=== PATIENT | female | born 1995 | race Caucasian/White ===

== ENCOUNTER 2017-05-02 19:20 | Inpatient (IN) | payer OTHER ==
[2017-05-02 21:12] LABS: BASOPHIL 0.3 % (0-2.0); EOSINOPHIL 2.7 % (0-4.5); MCH 27.8 pg (25.7-33.7); MCHC 32.8 g/dl (32.0-36.0); MEAN CELL VOLUME 84.9 fl (80-96); MEAN PLT VOLUME 9.4 fl (7.5-11.1); NEUTROPHILS 71.7 % (42.8-82.8); PLATELET COUNT 249 K/MM3 (134-434); RDW 13.6 % (11.6-15.6); WHITE BLOOD COUNT 11.7 K/mm3 (4.0-10.0)
[2017-05-02] MEDS ORDERED: DINOPROSTONE 10 MG VAGINAL SUPPOSITORY VG ONE (21:35)
[2017-05-02] MEDS ORDERED: BUTORPHANOL TARTRATE 1 MG/ML VIAL IVPUSH PRN (21:36)
--- NOTE | 2017-05-02 21:37 | HP ---
Past Medical History - Primary Care Physician PCP:: Jessica Levi - Admission Chief Complaint: Post dates induction History of Present Illness: 22 yo EDC 04/25/17 EGA 41 weeks admitted for induction of labor no ROM, Bleeding or YUSUF course low risk male infant primigravida normal anatomy scan EFW 48 % Saw MFM during Fam Hx CHD and mental health discorder History Source: Patient - Past Medical History ...: 1 ...Para: 0 ...EDC by Sono: 04/26/17 Psych: Yes: Schizophrenia - Past Surgical History Hx Myomectomy: No Hx Transabdominal Cerclage: No Additional Surgical History: Breast Implants 2013 - Smoking History Smoking history: Former smoker Have you smoked in the past 12 months: No If you are a former smoker, when did you quit?: When - Alcohol/Substance Use Hx Alcohol Use: No History of Substance Use: reports: Marijuana (none during ) - Social History Usual Living Arrangement: Yes: With Spouse History of Recent Travel: No Home Medications - Allergies Allergies/Adverse Reactions: Allergies Allergy/AdvReac Type Severity Reaction Status Date / Time No Known Allergies Allergy Verified 05/03/17 00:54 - Home Medications Home Medications: Ambulatory Orders Pnv95/Ferrous Fumarate/FA [ Vitamin Tablet] 1 each PO DAILY 05/03/17 Review of Systems - Review of Systems Constitutional: reports: No Symptoms Eyes: reports: No Symptoms HENT: reports: No Symptoms Neck: reports: No Symptoms Cardiovascular: reports: No Symptoms Respiratory: reports: No Symptoms Gastrointestinal: reports: No Symptoms Genitourinary: reports: No Symptoms Breasts: reports: No Symptoms Reported Musculoskeletal: reports: No Symptoms Integumentary: reports: No Symptoms Neurological: reports: No Symptoms Endocrine: reports: No Symptoms Hematology/Lymphatic: reports: No Symptoms Psychiatric: reports: No Symptoms Physical Exam - Maternity Constitutional: Yes: Well Nourished, No Distress Neck: Yes: WNL Cardiovascular: Yes: WNL Breast(s): Yes: WNL - Abdominal Exam/OB Fundal Height: 41 Number of Fetuses: Single Presentation: Vertex Contractions: No Heart Rate (range): 140 Heart Rate Location: [place] Category: I Accelerations: Non-Uniform Decelerations: None - Vaginal Exam/OB Vaginal Bleediing: No Speculum Exam: No Dilatation (cm): closed Effacement (%): 50 Amniotic Membrane Status: Intact Presentation: Vertex/Position Station: -1 - Physical Exam Musculoskeletal: Yes: WNL, Muscle Weakness Extremities: Yes: WNL Edema: No Psychiatric: Yes: WNL, Alert, Oriented - Labs Lab Results: CBC, BMP 05/02/17 20:50 Hemorrhage Risk Assessment - Risk Factors Risk Score: 0 Risk Level: Low Risk Problem List - Problems (1) Post-dates Code(s): O48.0 - POST-TERM Assessment/Plan IUP at 41 week Post dates Cat 1 Plan cervidil placed Stadol ordered
[2017-05-02 21:38] LABS: CALCIUM 8.6 mg/dL (8.5-10.1); CREATININE 0.6 mg/dL (0.55-1.02); INR 0.85 (0.82-1.09); PROTHROMBIN TIME (PATIENT) 9.3 SEC (9.98-11.88)
[2017-05-02 21:41] LABS: ACTIVATED PTT 28.7 SECONDS (26.9-34.4)
[2017-05-03 00:03] VITALS: BMI 29.0
--- NOTE | 2017-05-03 03:06 | PN ---
Ante-Partal Exam - Subjective Subjective: Pt with c/o pain and desires pain management Vital Signs: Vital Signs Temperature 98.6 F 05/02/17 22:00 Pulse Rate 62 05/02/17 22:00 Respiratory Rate 20 05/02/17 22:00 Blood Pressure 124/76 05/02/17 22:00 O2 Sat by Pulse Oximetry (%) Bleeding: No Headache: No Visual changes: No Right upper quadrant pain: No - Contractions Contractions: Yes Regularity: Regular Intensity: Moderate Monitor Mode: External - Exam during Labor Heart Rate: 140 Variability: Moderate Category: I Monitor Accelerations: Present Monitor Decelerations: None Exam: Vaginal Dilatation (cm): closed Amniotic Membrane Status: Intact Presentation: Vertex Station: -1 - Intrapartum Hemorrhage Risk Risk Score: 0 Risk Level: Low Risk - Assessment/Plan Assessment/Plan: IUp at 41 weeks post dates induction Cat 1 Cervidil induction Plan Stadol phenergan continue present management with cervidil
[2017-05-03] MEDS: DEXTROSE 5%-LACTATED RINGERS 1,000 ML IV SCH ×3 (03:25→20:00)
[2017-05-03] MEDS ORDERED: BUTORPHANOL TARTRATE 1 MG/ML VIAL IVPUSH ONE (05:30)
[2017-05-03] MEDS ORDERED: TUBERCULIN PPD 5 TU/0.1ML SYRINGE (IN PATIENT USE ONLY) ID ONE (05:30)
[2017-05-03] MEDS ORDERED: PROMETHAZINE HCL 25 MG/1 ML VIAL IVPUSH ONE (05:30)
[2017-05-03] MEDS ORDERED: AMPICILLIN - 100 ML IVPB ONE (06:15)
[2017-05-03] MEDS ORDERED: AMPICILLIN - 100 ML IVPB SCH (10:15)
[2017-05-03] MEDS ORDERED: DINOPROSTONE 10 MG VAGINAL SUPPOSITORY VG ONE (10:15)
--- NOTE | 2017-05-03 10:43 | PN ---
Ante-Partal Exam - Subjective Vital Signs: Vital Signs Temperature 98.1 F 05/03/17 09:00 Pulse Rate 80 05/03/17 09:00 Respiratory Rate 20 05/03/17 09:00 Blood Pressure 121/65 05/03/17 09:00 O2 Sat by Pulse Oximetry (%) Bleeding: No Headache: No Visual changes: No Right upper quadrant pain: No Pain (scale 1-10): 0 - Contractions Contractions: Yes Regularity: Irregular Intensity: Unaware Monitor Mode: External - Exam during Labor Heart Rate: 140 Variability: Moderate Category: I Monitor Decelerations: None Exam: Vaginal Dilatation (cm): 0.5 Effacement (%): long Amniotic Membrane Status: Intact Presentation: Vertex Station: -2 - Assessment/Plan Assessment/Plan: 22 y/o with SIUP at 41 weeks for IOL 2/2 late term - FHTS cat 1 - IOL, s/p cervidil overnight which was removed 2/2 recurrent late decelerations , cervix still unripe. 2nd cervidil placed this a.m. at 10:00. For re evaluation at 10pm for possible pitocin. Discussed other possible induction methods including mechanical dilation with balloon catheter, misoprostol (will determine if is adequate choice due to recurrent variable decelerations with cervidil overnight) and pitocin. Pt aware of other induction methods and r/b/a for these methods. - GBS positive, will start prophylaxis with ROM or active labor - continue current management
--- NOTE | 2017-05-03 21:25 | PN ---
Ante-Partal Exam - Subjective Subjective: Pt feeling occasional cramping/contractions. Vital Signs: Vital Signs Temperature 98.8 F 05/03/17 18:00 Pulse Rate 80 05/03/17 20:00 Respiratory Rate 20 05/03/17 20:00 Blood Pressure 120/78 05/03/17 20:00 O2 Sat by Pulse Oximetry (%) Bleeding: No Headache: No Visual changes: No Right upper quadrant pain: No Pain (scale 1-10): 2 - Contractions Contractions: Yes Regularity: Regular Intensity: Mild/Mod Monitor Mode: External - Exam during Labor Heart Rate: 135 Variability: Moderate Category: I Monitor Accelerations: Present Monitor Decelerations: None Exam: Vaginal Dilatation (cm): 1 Effacement (%): 50 Amniotic Membrane Status: Intact Presentation: Vertex Station: -2 Remarks: cervix soft but posterior - Assessment/Plan Assessment/Plan: 22 y/o P0 with SIUP at 41 weeks here for labor induction for late term - FHTS cat 1 - labor induction - s/p cervidil X 2 - discussed next steps with patient including tsang bulb placement and pitocin. Pt declines tsang bulb at this time desires to try pitocin. Pt aware if pitocin doesn't work, we may try the tsang bulb in the morning - she is aware and agrees. - GBS positive, to start antibiotics with ROM or in active labor - continue current care
[2017-05-03] MEDS: OXYTOCIN 15 UNITS/ LR 250 ML 250 ML IVPB SCH (21:30)
[2017-05-04] MEDS: BUTORPHANOL TARTRATE 1 MG/ML VIAL IVPUSH PRN ×2 (02:28→09:45)
[2017-05-04] MEDS: PROMETHAZINE HCL 25 MG/1 ML VIAL IVPB PRN ×2 (02:28→09:35)
[2017-05-04] MEDS: DEXTROSE 5%-LACTATED RINGERS 1,000 ML IV SCH ×3 (02:40→09:35)
--- NOTE | 2017-05-04 07:32 | PN ---
Ante-Partal Exam - Subjective Subjective: Patient tolerating contractions. Pitocin at 14. Vital Signs: Vital Signs Temperature 98.4 F 05/04/17 06:00 Pulse Rate 84 05/04/17 06:00 Respiratory Rate 20 05/04/17 06:00 Blood Pressure 128/76 05/04/17 06:00 O2 Sat by Pulse Oximetry (%) Bleeding: No Headache: No Visual changes: No Right upper quadrant pain: No Pain (scale 1-10): 2 - Contractions Contractions: Yes Regularity: Regular Intensity: Mod/Strong Monitor Mode: External - Exam during Labor Heart Rate: 145 Variability: Moderate Category: I Monitor Accelerations: Absent Monitor Decelerations: None Exam: Vaginal Dilatation (cm): 50 Amniotic Membrane Status: Intact Presentation: Vertex Station: -2 - Assessment/Plan Assessment/Plan: 22 y/o P0 with SIUP at 41.1 weeks, labor induction due to late term - FHTS cat 1 - labor induction, s/p cervidil X 2, pitocin overnight with no cervical change. Patient agrees to tsang bulb placement - 30cc tsang baloon placed inside internal cervical os, 30cc saline infused. Pt tolerated procedure. - GBS positive, will start ampicillin once tsang balloon falls out or with SROM - continue current management
[2017-05-04] MEDS ORDERED: AMPICILLIN - 2 GM in SODIUM CHLORIDE 100 ML IVPB ONE (09:32)
--- NOTE | 2017-05-04 09:32 | PN ---
Ante-Partal Exam - Subjective Subjective: Tension placed on tsang balloon and balloon came out of vagina. Pt tolerating contractions but would like more pain medication. No other complaints. NO LOF. +FM. scant VB. Vital Signs: Vital Signs Temperature 98.8 F 05/04/17 08:00 Pulse Rate 55 L 05/04/17 08:00 Respiratory Rate 20 05/04/17 08:00 Blood Pressure 123/70 05/04/17 08:00 O2 Sat by Pulse Oximetry (%) Bleeding: Yes (scant bleeding after tsang balloon was displaced) Headache: No Visual changes: No Right upper quadrant pain: No Pain (scale 1-10): 7 - Contractions Contractions: Yes Regularity: Regular Intensity: Mod/Strong Monitor Mode: External - Exam during Labor Heart Rate: 145 Variability: Moderate Category: I Monitor Accelerations: Present Monitor Decelerations: None Exam: Vaginal Dilatation (cm): 3.5 Effacement (%): 50 Amniotic Membrane Status: Intact Presentation: Vertex Station: -1 Remarks: posterior cervix - Assessment/Plan Assessment/Plan: 22 y/o P0 with SIUP at 41.1 weeks, labor induction - AFVSS - FHTS cat 1 - labor induction, s/p cervidil X 2, on pitocin and s/p tsang balloon which came out at this time. Pt now 3-4cm dilated. To medicate again with Stadol/ phenergan for pain control. To get epidural prn - GBS positive - to start ampicillin at this time - continue active management
[2017-05-04] MEDS: OXYTOCIN 15 UNITS/ LR 250 ML 250 ML IVPB SCH ×4 (09:35→16:04)
[2017-05-04 10:40] LABS: URINE MARIJUANA THC NEGATIVE ng/ml (CUTOFF=50)
[2017-05-04] MEDS: ELECTROLYTE-148 SOLN 1,000 ML IV SCH ×4 (13:00→22:18)
[2017-05-04] MEDS: AMPICILLIN - 1 GM in SODIUM CHLORIDE 100 ML IVPB SCH ×3 (13:31→22:19)
[2017-05-04] MEDS: FENTANYL/BUPIVACAINE/NS/PF - PCEA - 50 ML DISP.SYRIN EP SCH ×2 (13:45→18:42)
[2017-05-04] MEDS: CLOTRIMAZOLE/BETAMET DIPROP 15 GM TUBE TP SCH (15:15)
--- NOTE | 2017-05-04 18:14 | PN ---
Ante-Partal Exam - Subjective Subjective: Patient comfortable s/p epidural. Vital Signs: Vital Signs Temperature 98.6 F 05/04/17 14:15 Pulse Rate 72 05/04/17 17:15 Respiratory Rate 20 05/04/17 17:15 Blood Pressure 119/68 05/04/17 17:15 O2 Sat by Pulse Oximetry (%) 100 05/04/17 17:15 Bleeding: Yes Bleeding Description: Mild Headache: No Visual changes: No Right upper quadrant pain: No Pain (scale 1-10): 0 - Contractions Contractions: Yes Regularity: Regular Intensity: Mod/Strong Monitor Mode: External - Exam during Labor Heart Rate: 145 Variability: Moderate Category: I Monitor Accelerations: Present Monitor Decelerations: None Exam: Vaginal Dilatation (cm): 5.5 Effacement (%): 100 Amniotic Membrane Status: Ruptured (clear fluid - AROM) Nitrazine Test: Positive Amniotic Fluid: Clear Presentation: Vertex Station: -1 - Assessment/Plan Assessment/Plan: 22 y/o with SIUP at 41.1 weeks, labor induction for late term - FHTS cat 1 - IOL for late term - pt on pitocin at 17, AROM for clear fluid at this exam. Continue expectant management - GBS positive, continue ampicillin for prophylaxis - anticipate
[2017-05-04] MEDS ORDERED: ACETAMINOPHEN 1000 MG/100 ML VIAL (NON FORMULARY) IVPB ONE (21:09)
[2017-05-05] MEDS: OXYTOCIN 15 UNITS/ LR 250 ML 250 ML IVPB SCH (01:29)
[2017-05-05] MEDS: AMPICILLIN - 1 GM in SODIUM CHLORIDE 100 ML IVPB SCH ×2 (02:12→05:54)
[2017-05-05] MEDS: CLOTRIMAZOLE/BETAMET DIPROP 15 GM TUBE TP SCH ×3 (04:15→21:30)
--- NOTE | 2017-05-05 08:53 | PN ---
Ante-Partal Exam - Subjective Subjective: Patient feeling some tightening, no pain with contractions. Overnight patient was febrile to 100.7 at 9pm. Received one dose of IV Acetaminophen and was afebrile since. Pt had oliguria so pitocin was discontinued at 2 am. Patient remained 6cm at 2am at her last examination per nursing overnight. This a.m. patient is requesting delivery. Vital Signs: Vital Signs Temperature 99.5 F 05/05/17 08:00 Pulse Rate 71 05/05/17 06:45 Respiratory Rate 16 05/05/17 06:45 Blood Pressure 102/49 05/05/17 06:45 O2 Sat by Pulse Oximetry (%) 99 05/04/17 23:45 Bleeding: No Headache: No Visual changes: No Right upper quadrant pain: No Pain (scale 1-10): 2 - Contractions Contractions: Yes Regularity: Irregular Intensity: Mild Monitor Mode: External - Exam during Labor Heart Rate: 150 Variability: Moderate Category: I Monitor Decelerations: None Exam: Vaginal (last examination was 5-6cm at -2 station per nursing, pt declines further vaginal exams) Amniotic Membrane Status: Ruptured Amniotic Fluid: Clear Presentation: Vertex - Intrapartum Hemorrhage Risk Medium Risk Factors: Prolonged Oxytocin Use >24hrs Risk Score: 1 Risk Level: Medium Risk - Assessment/Plan Assessment/Plan: 22 y/o P0 with SIUP at 41.2 weeks, was labor induction due to late term, now with arrest of dilation - AFVSS - Tmax overnight 100.7, resolved with one dose of IV acetaminophen, abdomen nontender, do not expect acute chorioamionitis at this time, will monitor mother post for signs of endometritis - FHTS cat 1 - IOL with arrest of dilation at 6cm - pt for delivery. Consents signed. Patient, nursing, and anesthesia aware - NPO, Lara catheter, SCDs in place - oliguria - will monitor s/p delivery. If still present after section , will check kidney function
[2017-05-05] MEDS ORDERED: METHYLERGONOVINE MALEATE 0.2 MG/1 ML AMP IM PRN (09:06)
[2017-05-05] MEDS ORDERED: BENZOCAINE 28 GM HEMORRHOIDAL OINTMENT TP PRN (09:06)
[2017-05-05] MEDS ORDERED: WITCH HAZEL 50% (TUCKS) 40 PAD/JAR PAD TP PRN (09:06)
[2017-05-05] MEDS ORDERED: ONDANSETRON 4 MG/2 ML VIAL IVPB PRN (10:21)
[2017-05-05] MEDS ORDERED: ACETAMINOPHEN 1000 MG/100 ML VIAL (NON FORMULARY) IVPB PRN (10:23)
[2017-05-05] MEDS: OXYTOCIN 20 UNITS in 0.9% NS 1,000 ML IV SCH ×2 (12:39→21:31)
[2017-05-05] MEDS: IBUPROFEN 800 MG/8 ML IJ IVPB PRN ×2 (12:39→23:32)
[2017-05-05] MEDS: PRENATAL VITAMINS W/ FOLIC ACID TABLET (FP) PO SCH (14:04)
[2017-05-05] MEDS: FERROUS SO4 325 MG TABLET (FP) PO SCH ×2 (14:04→21:30)
[2017-05-05] MEDS ORDERED: CEFAZOLIN (PRE-DOCKED) 50 ML IVPB ONE ×2 (14:25→21:09)
[2017-05-05] MEDS: CEFAZOLIN 1 GM/D5W 50 ML IVPB SCH ×2 (14:33→21:27)
[2017-05-06] MEDS ORDERED: CEFAZOLIN (PRE-DOCKED) 50 ML IVPB ONE ×3 (05:24→21:26)
[2017-05-06] MEDS: CEFAZOLIN 1 GM/D5W 50 ML IVPB SCH (05:33)
[2017-05-06] MEDS: IBUPROFEN 800 MG/8 ML IJ IVPB PRN (05:50)
--- NOTE | 2017-05-06 06:33 | PN ---
Progress Note (SOAP) - Subjective Chief Complaint: Pt doing well but severe labia swelling - Current Medications Current Medications: Active Medications Acetaminophen (Tylenol -) 650 mg PO Q4H PRN PRN Reason: FEVER OR PAIN Benzocaine (Americaine Ointment -) 1 applic TP PRN PRN PRN Reason: PAIN Bisacodyl (Dulcolax Suppository -) 10 mg RC PRN PRN PRN Reason: CONSTIPATION Butorphanol Tartrate (Stadol -) 2 mg IVPUSH Q4H PRN PRN Reason: PAIN LEVEL 6-10 Last Admin: 05/04/17 09:45 Dose: 2 mg Clotrimazole (Lotrisone Cream (Small Tube)) 1 applic TP BID [facility] Last Admin: 05/05/17 21:30 Dose: 1 applic Diphenhydramine HCl (Benadryl Injection -) 25 mg IVPUSH Q4H PRN PRN Reason: Pruritis Last Admin: 05/05/17 23:32 Dose: 25 mg Diphtheria/Tetanus/Acell Pertussis (Boostrix -) 0.5 ml IM .ONCE ONE Stop: 05/06/17 10:01 Ferrous Sulfate (Feosol -) 325 mg PO BID [facility] Last Admin: 05/05/17 21:30 Dose: Not Given Cefazolin Sodium (Ancef 1 Gm Premixed Ivpb -) 50 mls @ 100 mls/hr IVPB Q8H [facility] Stop: 05/06/17 13:59 Last Admin: 05/06/17 05:33 Dose: 100 mls/hr Oxytocin/Sodium Chloride (Normal Saline+20 Units Oxytocin -) 1,000 mls @ 125 mls/hr IV ASDIR [facility] Last Admin: 05/05/17 21:31 Dose: 125 mls/hr Ibuprofen (Motrin -) 600 mg PO Q4H PRN PRN Reason: PAIN Ibuprofen (Caldolor Injection -) 800 mg IVPB Q8H PRN PRN Reason: PAIN OR FEVER Last Admin: 05/06/17 05:50 Dose: 800 mg Methylergonovine Maleate (Methergine Injection -) 0.2 mg IM Q4H PRN PRN Reason: Excessive Bleeding (L&D) Oxycodone HCl (Roxicodone -) 5 mg PO Q4H PRN PRN Reason: PAIN LEVEL 1-5 Oxycodone HCl (Roxicodone -) 10 mg PO Q4H PRN PRN Reason: PAIN LEVEL 6-10 Multivit/Folic Acid/Iron ( Vitamins (Sjr) -) 1 tab PO DAILY [facility] Last Admin: 05/05/17 14:04 Dose: Not Given Simethicone (Mylicon -) 80 mg PO Q4H PRN PRN Reason: GAS Witch Tayler/Glycerin (Tucks Pads -) 1 pad TP PRN PRN PRN Reason: PAIN - Objective Vital Signs: Vital Signs Temperature 97.7 F 05/06/17 05:37 Pulse Rate 64 05/06/17 05:37 Respiratory Rate 18 05/06/17 06:00 Blood Pressure 110/69 05/06/17 05:37 O2 Sat by Pulse Oximetry (%) 100 05/05/17 11:15 Constitutional: Yes: Well Nourished, No Distress ....Post : Yes: Uterus firm, Uterus non-tender Musculoskeletal: Yes: WNL Extremities: Yes: WNL Peripheral Pulses WNL: No Edema: Yes Edema: LLE: Trace, RLE: Trace (severe labia swelling) Wound/Incision: Yes: Clean/Dry, Dressing Dry and Intact Neurological: Yes: WNL, Alert, Oriented Labs Lab Results: CBC, BMP 05/02/17 20:50 05/02/17 20:50 Problem List - Problems (1) Post-dates Code(s): O48.0 - POST-TERM Assessment/Plan SP Primary CS POD 1 Severe Labia swelling Elevated WBC Plan OOB Percocet ice packs to vulvar area Continue abs
[2017-05-06 08:02] LABS: MCH 27.6 pg (25.7-33.7); MCHC 32.1 g/dl (32.0-36.0); MEAN CELL VOLUME 85.8 fl (80-96); PLATELET COUNT 162 K/MM3 (134-434); RDW 13.8 % (11.6-15.6); WHITE BLOOD COUNT 21.2 K/mm3 (4.0-10.0)
--- NOTE | 2017-05-06 08:18 | PN ---
Progress Note (short form) - Note Progress Note: Anesthesia/pain Pt seen and examined S:alert and awake comfortable O: Vital Signs Temperature 97.7 F 05/06/17 05:37 Pulse Rate 64 05/06/17 05:37 Respiratory Rate 18 05/06/17 06:00 Blood Pressure 110/69 05/06/17 05:37 O2 Sat by Pulse Oximetry (%) 100 05/05/17 11:15 CBC, BMP 05/06/17 07:00 05/02/17 20:50 A/P:Current Active Problems Post-dates (Acute) s/p c section Comfortable Doing well post op Nate Lynne MD
[2017-05-06 08:53] LABS: HYPOCHROMIA 1+; PLATELET ESTIMATE ADEQUATE (NORMAL); POLYCHROMASIA 1+
[2017-05-06] MEDS ORDERED: BISACODYL 10 MG SUPP.RECT RC PRN (09:06)
[2017-05-06] MEDS: FERROUS SO4 325 MG TABLET (FP) PO SCH ×3 (09:25→23:34)
[2017-05-06] MEDS: CLOTRIMAZOLE/BETAMET DIPROP 15 GM TUBE TP SCH ×2 (09:25→21:42)
[2017-05-06] MEDS: PRENATAL VITAMINS W/ FOLIC ACID TABLET (FP) PO SCH (09:26)
[2017-05-06] MEDS ORDERED: CEFAZOLIN (PRE-DOCKED) 1 GM in DEXTROSE 5%-WATER - 50 ML IVPB SCH (10:00)
[2017-05-06] MEDS ORDERED: DIPHTH,PERTUSS(ACELL),TET 0.5 ML DISP.SYRIN IM ONE (10:00)
[2017-05-06] MEDS: SIMETHICONE 80 MG TAB.CHEW (FP) PO PRN ×3 (11:24→21:42)
[2017-05-06] MEDS: IBUPROFEN 600 MG TABLET (FP) PO PRN ×3 (11:24→21:39)
[2017-05-06] MEDS: oxyCODONE HCL 5 MG TABLET PO PRN ×3 (11:25→21:38)
[2017-05-06] MEDS: CEFAZOLIN (PRE-DOCKED) 1 GM in DEXTROSE 5%-WATER - 50 ML IVPB SCH ×2 (13:18→21:32)
[2017-05-06] MEDS ORDERED: diphenhydrAMINE HCL 25 MG CAPSULE (FP) PO PRN (22:15)
[2017-05-07] MEDS: SIMETHICONE 80 MG TAB.CHEW (FP) PO PRN ×3 (03:12→22:07)
[2017-05-07] MEDS: oxyCODONE HCL 5 MG TABLET PO PRN ×3 (03:14→22:06)
[2017-05-07] MEDS: IBUPROFEN 600 MG TABLET (FP) PO PRN ×2 (03:15→14:20)
[2017-05-07] MEDS ORDERED: CEFAZOLIN (PRE-DOCKED) 50 ML IVPB ONE (05:38)
[2017-05-07] MEDS: CEFAZOLIN (PRE-DOCKED) 1 GM in DEXTROSE 5%-WATER - 50 ML IVPB SCH (05:43)
[2017-05-07] MEDS: PRENATAL VITAMINS W/ FOLIC ACID TABLET (FP) PO SCH (09:47)
[2017-05-07] MEDS: FERROUS SO4 325 MG TABLET (FP) PO SCH ×2 (09:47→22:07)
[2017-05-07] MEDS: CLOTRIMAZOLE/BETAMET DIPROP 15 GM TUBE TP SCH ×2 (09:48→22:44)
[2017-05-07 12:07] LABS: BASOPHIL 0.2 % (0-2.0); EOSINOPHIL 0.6 % (0-4.5); MCH 27.7 pg (25.7-33.7); MCHC 32.5 g/dl (32.0-36.0); NEUTROPHILS 86.7 % (42.8-82.8); PLATELET COUNT 191 K/MM3 (134-434); WHITE BLOOD COUNT 16.8 K/mm3 (4.0-10.0)
[2017-05-07] MEDS: CEFAZOLIN (PRE-DOCKED) 50 ML IVPB SCH ×2 (14:25→22:07)
--- NOTE | 2017-05-07 21:25 | PN ---
Progress Note (SOAP) - Subjective Chief Complaint: Pt with swollen labia - Current Medications Current Medications: Active Medications Acetaminophen (Tylenol -) 650 mg PO Q4H PRN PRN Reason: FEVER OR PAIN Benzocaine (Americaine Ointment -) 1 applic TP PRN PRN PRN Reason: PAIN Bisacodyl (Dulcolax Suppository -) 10 mg RC PRN PRN PRN Reason: CONSTIPATION Clotrimazole (Lotrisone Cream (Small Tube)) 1 applic TP BID [facility] Last Admin: 05/07/17 09:48 Dose: 1 applic Diphenhydramine HCl (Benadryl Injection -) 25 mg IVPUSH Q4H PRN PRN Reason: Pruritis Last Admin: 05/05/17 23:32 Dose: 25 mg Diphenhydramine HCl (Benadryl -) 25 mg PO Q6H PRN Last Admin: 05/06/17 23:32 Dose: 25 mg Ferrous Sulfate (Feosol -) 325 mg PO BID [facility] Last Admin: 05/07/17 09:47 Dose: 325 mg Cefazolin Sodium (Ancef 1gm Ivpb (Pre-Docked)) 50 mls @ 100 mls/hr IVPB Q8H [facility] Last Admin: 05/07/17 14:25 Dose: 100 mls/hr Ibuprofen (Motrin -) 600 mg PO Q4H PRN PRN Reason: PAIN Last Admin: 05/07/17 14:20 Dose: 600 mg Ibuprofen (Caldolor Injection -) 800 mg IVPB Q8H PRN PRN Reason: PAIN OR FEVER Last Admin: 05/06/17 05:50 Dose: 800 mg Methylergonovine Maleate (Methergine Injection -) 0.2 mg IM Q4H PRN PRN Reason: Excessive Bleeding (L&D) Oxycodone HCl (Roxicodone -) 5 mg PO Q4H PRN PRN Reason: PAIN LEVEL 1-5 Last Admin: 05/07/17 14:18 Dose: 5 mg Oxycodone HCl (Roxicodone -) 10 mg PO Q4H PRN PRN Reason: PAIN LEVEL 6-10 Multivit/Folic Acid/Iron ( Vitamins (Sjr) -) 1 tab PO DAILY [facility] Last Admin: 05/07/17 09:47 Dose: 1 tab Simethicone (Mylicon -) 80 mg PO Q4H PRN PRN Reason: GAS Last Admin: 05/07/17 14:18 Dose: 80 mg Witch Tayler/Glycerin (Tucks Pads -) 1 pad TP PRN PRN PRN Reason: PAIN - Objective Vital Signs: Vital Signs Temperature 98.4 F 05/07/17 08:36 Pulse Rate 71 05/07/17 08:36 Respiratory Rate 20 05/07/17 08:36 Blood Pressure 131/84 05/07/17 08:36 O2 Sat by Pulse Oximetry (%) 100 05/05/17 11:15 Constitutional: Yes: Well Nourished, No Distress Labs Lab Results: CBC, BMP 05/07/17 11:59 05/02/17 20:50 Problem List - Problems (1) delivery delivered Code(s): O82 - ENCOUNTER FOR DELIVERY WITHOUT INDICATION (2) Swelling of vulva Code(s): N90.89 - OTH NONINFLAMMATORY DISORDERS OF VULVA AND PERINEUM Assessment/Plan SP Primary CS POD 2 Severe Labia swelling Elevated WBC 16 Plan OOB Percocet ice packs to vulvar area Continue abs
[2017-05-07] MEDS: ACETAMINOPHEN 325 MG TABLET (FP) PO PRN (22:05)
[2017-05-08] MEDS: SIMETHICONE 80 MG TAB.CHEW (FP) PO PRN ×5 (02:02→21:00)
[2017-05-08] MEDS: ACETAMINOPHEN 325 MG TABLET (FP) PO PRN ×5 (02:02→20:58)
[2017-05-08] MEDS: oxyCODONE HCL 5 MG TABLET PO PRN ×5 (02:03→20:55)
[2017-05-08] MEDS: CEFAZOLIN (PRE-DOCKED) 50 ML IVPB SCH (05:42)
--- NOTE | 2017-05-08 05:51 | PN ---
Progress Note (SOAP) - Subjective Chief Complaint: Pt with swollen labia - Current Medications Current Medications: Active Medications Acetaminophen (Tylenol -) 650 mg PO Q4H PRN PRN Reason: FEVER OR PAIN Last Admin: 05/08/17 05:43 Dose: 650 mg Benzocaine (Americaine Ointment -) 1 applic TP PRN PRN PRN Reason: PAIN Bisacodyl (Dulcolax Suppository -) 10 mg RC PRN PRN PRN Reason: CONSTIPATION Clotrimazole (Lotrisone Cream (Small Tube)) 1 applic TP BID [facility] Last Admin: 05/07/17 22:44 Dose: 1 applic Diphenhydramine HCl (Benadryl Injection -) 25 mg IVPUSH Q4H PRN PRN Reason: Pruritis Last Admin: 05/05/17 23:32 Dose: 25 mg Diphenhydramine HCl (Benadryl -) 25 mg PO Q6H PRN Last Admin: 05/06/17 23:32 Dose: 25 mg Ferrous Sulfate (Feosol -) 325 mg PO BID [facility] Last Admin: 05/07/17 22:07 Dose: 325 mg Cefazolin Sodium (Ancef 1gm Ivpb (Pre-Docked)) 50 mls @ 100 mls/hr IVPB Q8H [facility] Last Admin: 05/08/17 05:42 Dose: 100 mls/hr Ibuprofen (Motrin -) 600 mg PO Q4H PRN PRN Reason: PAIN Last Admin: 05/07/17 14:20 Dose: 600 mg Ibuprofen (Caldolor Injection -) 800 mg IVPB Q8H PRN PRN Reason: PAIN OR FEVER Last Admin: 05/06/17 05:50 Dose: 800 mg Methylergonovine Maleate (Methergine Injection -) 0.2 mg IM Q4H PRN PRN Reason: Excessive Bleeding (L&D) Oxycodone HCl (Roxicodone -) 5 mg PO Q4H PRN PRN Reason: PAIN LEVEL 1-5 Last Admin: 05/08/17 05:42 Dose: 5 mg Oxycodone HCl (Roxicodone -) 10 mg PO Q4H PRN PRN Reason: PAIN LEVEL 6-10 Multivit/Folic Acid/Iron ( Vitamins (Sjr) -) 1 tab PO DAILY [facility] Last Admin: 05/07/17 09:47 Dose: 1 tab Simethicone (Mylicon -) 80 mg PO Q4H PRN PRN Reason: GAS Last Admin: 05/08/17 05:42 Dose: 80 mg Witch [place]ler/Glycerin (Tucks Pads -) 1 pad TP PRN PRN PRN Reason: PAIN - Objective Vital Signs: Vital Signs Temperature 98.9 F 05/07/17 22:00 Pulse Rate 84 05/07/17 22:00 Respiratory Rate 20 05/07/17 22:00 Blood Pressure 137/75 05/07/17 22:00 O2 Sat by Pulse Oximetry (%) 100 05/05/17 11:15 Constitutional: Yes: Well Nourished, No Distress Neck: Yes: WNL Cardiovascular: Yes: WNL Respiratory: Yes: WNL Gastrointestinal: Yes: WNL, Normal Bowel Sounds Genitourinary: Yes: Other (swollen labia) ....Post : Yes: Uterus firm, Uterus non-tender Musculoskeletal: Yes: WNL Extremities: Yes: WNL Edema: No Edema: LLE: 1+, RLE: 1+ Wound/Incision: Yes: Clean/Dry, Well Approximated Neurological: Yes: WNL, Alert, Oriented Labs Lab Results: CBC, BMP 05/07/17 11:59 05/02/17 20:50 Problem List - Problems (1) delivery delivered Code(s): O82 - ENCOUNTER FOR DELIVERY WITHOUT INDICATION (2) Swelling of vulva Code(s): N90.89 - OTH NONINFLAMMATORY DISORDERS OF VULVA AND PERINEUM Assessment/Plan SP Primary CS POD 2 Severe Labia swelling Elevated WBC 16 Plan OOB Percocet ice packs to vulvar area Continue abs
--- NOTE | 2017-05-08 07:36 | OP ---
Operative Note - Note: Operative Date: 05/05/17 Pre-Operative Diagnosis: SIUP at 41.2 weeks, arrest of dilation Operation: Primary LTCS Findings: very edematous labia normal bilateral fallopian tubes and ovaries Post-Operative Diagnosis: Same as Pre-op Surgeon: Jessica Levi Executive Asst: Oswald Galindo Anesthesiologist/TANNERY WORKER: Iqra Jung Anesthesia: Epidural Specimens Removed: placenta Estimated Blood Loss (mls): 600 Operative Report Dictated: Yes
[2017-05-08 08:10] LABS: BASOPHIL 0.2 % (0-2.0); EOSINOPHIL 1.8 % (0-4.5); MCHC 33.3 g/dl (32.0-36.0); MEAN CELL VOLUME 84.2 fl (80-96); MEAN PLT VOLUME 8.5 fl (7.5-11.1); PLATELET COUNT 207 K/MM3 (134-434); RDW 13.8 % (11.6-15.6); WHITE BLOOD COUNT 13.8 K/mm3 (4.0-10.0)
[2017-05-08] MEDS: CLOTRIMAZOLE/BETAMET DIPROP 15 GM TUBE TP SCH ×2 (10:00→23:00)
[2017-05-08] MEDS: PRENATAL VITAMINS W/ FOLIC ACID TABLET (FP) PO SCH (10:06)
[2017-05-08] MEDS: FERROUS SO4 325 MG TABLET (FP) PO SCH ×2 (10:06→22:48)
[2017-05-09] MEDS: SIMETHICONE 80 MG TAB.CHEW (FP) PO PRN ×3 (01:21→11:05)
[2017-05-09] MEDS: oxyCODONE HCL 5 MG TABLET PO PRN ×3 (01:22→11:07)
[2017-05-09] MEDS: ACETAMINOPHEN 325 MG TABLET (FP) PO PRN ×3 (01:22→11:05)
[2017-05-09 09:10] VITALS: BP 137/86; PULSE 83; TEMP 98.7
--- NOTE | 2017-05-09 10:58 | DS ---
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 Vital Signs: Vital Signs Temperature 98.7 F 05/09/17 09:06 Pulse Rate 83 05/09/17 09:06 Respiratory Rate 18 05/09/17 09:06 Blood Pressure 137/86 05/09/17 09:06 O2 Sat by Pulse Oximetry (%) 100 05/05/17 11:15 Labs: CBC, BMP 05/08/17 06:00 05/02/17 20:50 Delivery - Delivery Type of Anesthesia: Epidural Episiotomy/Laceration: None EBL (cc): 300 Delivery, Single - Stages of Labor Date 1st Stage Initiatied: 05/04/17 Time 1st Stage Initiated: 09:30 Date of Delivery: 05/05/17 Time of Delivery: : Time Placenta Delivered: : - Condition of Infant Doper Operator/Grain Processor Present: Yes Name: Braeden Urias Infant Gender: Male Weight: 7 lb 14 oz Position: OA Total Hours ROM (Hrs/Mins): 15 - 1 Minute Total Score: 9 5 Minutes Total Score: 9 - [place] Feeding Plan Initial Plan: Elected not to breastfeed exclusively throughout hospitalization Discharge Summary Reason For Visit: INDUCTION OF LABOR Current Active Problems delivery delivered (Acute) Post-dates (Acute) Swelling of vulva (Acute) Condition: Good - Instructions Diet, Activity, Other Instructions: Physical activity Resume your normal everyday activity as tolerated but no heavy lifting or strenuous exercise until seen by your surgeon. You may walk unlimited amounts and climb stairs. You may resume driving the car when you feel safe and comfortable behind the wheel. No sexual activity as instructed. Wound care If there are tapes on the skin leave them in place. They will peel off in the next 7 to 10 days. Do Not Peel them off. You may shower the day after surgery. If there are tapes present on the skin, you may shower over them. Diet There are no dietary restrictions. Eat healthy, high-fiber foods. Drink 6 to 8 glasses of liquid each day. This will assist in keeping your bowels regular. Pain management You may take Tylenol or Ibuprofen (for example, Motrin, Advil etc.) from mild pain. If any prescription medication is ordered should be taken as prescribed for moderate to severe pain. Call MD for any of the following: Severe pain not relieved by medication Fever of 101 or higher Excessive bleeding or drainage on dressing Inability to urinate Call the office to make an appointment for 7 days to check your incision. Referrals: Jessica Levi DO [Staff Physician] - 1 Week Disposition: HOME - Home Medications Comprehensive Discharge Medication List: Ambulatory Orders Pnv95/Ferrous Fumarate/FA [ Vitamin Tablet] 1 each PO DAILY 05/03/17 Ibuprofen [Motrin -] 600 mg PO QID PRN #28 tablet 05/09/17 Oxycodone HCl/Acetaminophen [Percocet 5-325 mg Tablet -] 1 tab PO Q4H #20 tablet MDD 6 05/09/17
[2017-05-09] MEDS: PRENATAL VITAMINS W/ FOLIC ACID TABLET (FP) PO SCH (11:05)
[2017-05-09] MEDS: FERROUS SO4 325 MG TABLET (FP) PO SCH (11:08)
[2017-05-09] MEDS: CLOTRIMAZOLE/BETAMET DIPROP 15 GM TUBE TP SCH (11:09)
--- NOTE | 2017-05-09 11:43 | OP ---
DATE OF OPERATION: 05/05/2017 PREOPERATIVE DIAGNOSES: 1. Arrest of dilation. 2. Single intrauterine at 41.2 weeks gestation. 3. Failed induction of labor. 4. Group B Strep positive status. POSTOPERATIVE DIAGNOSES: 1. Arrest of dilation. 2. Single intrauterine at 41.2 weeks gestation. 3. Failed induction of labor. 4. Group B Strep positive status. PROCEDURE: Primary low-transverse section. SURGEON: Jessica Levi DO REGIONAL DRIVER: CARLENE Dee ANESTHESIA: Epidural anesthesia. ANESTHESIOLOGIST: Iqra Jung MD ESTIMATED BLOOD LOSS: 600 mL. COMPLICATIONS: None. SPECIMENS: Specimens removed included the placenta. COUNTS: Sponge, needle, and instrument counts correct at the end of the case. FINDINGS: Very edematous labia minora. Normal bilateral fallopian tubes and ovaries. DISPOSITION: Stable to PACU. BRIEF HISTORY AND PROCEDURE: The patient is a 22-year-old female who was admitted to [facility] on May 02, 2017, for an induction of labor secondary to late term. The patient had received 2 Cervidil for induction as well as an endocervical Lara bulb and Pitocin throughout the day of May 02, 2017, to May 05, 2017. On May 05, 2017, in the morning the patient's cervix was found to be approximately 6-cm dilated, which was unchanged from over 12 hours prior on the evening of May 04, 2017. The patient at this point was complete on her cervical status and agreed to undergo a primary section at this time. The patient received an epidural for pain control throughout the induction process, which was used for anesthesia. The patient was taken back to the operating room where her epidural was bolused by Dr. Iqra Jung. She was then placed on the operating room table in dorsal supine position. A Lara catheter had been placed earlier under sterile conditions. The patient was prepped and draped in the usual sterile fashion and then a hard time-out was performed. A Pfannenstiel skin incision was created in the skin with the scalpel and carried to the underlying layer of rectus fascia with the Bovie. The rectus fascia was incised on either side of the midline with Bovie and the fascial incision was carried in the superolateral direction with the Bovie. The fascia was tented upwards with Saman clamps and dissected off the underlying layer of rectus muscle with the Bovie. The rectus muscle was retracted laterally and the peritoneum was entered bluntly. The bladder at this point appeared to be very full and minimal drainage secondary to obstruction from the head was noted. The bladder was protected with the bladder blade at this time and a transverse incision was created in the lower uterine segment of the uterus with the scalpel. This incision was carried in the superolateral direction bluntly. The was then delivered from the left occipital transverse position without difficulty. A loose nuchal cord was appreciated, which was reduced after delivered head. The remainder of the including the anterior shoulder, which was the right shoulder, was delivered with ease. The cord was then clamped twice and cut in between. The infant was taken over to the warmer to be assessed by the neonatology staff that was present for the entire delivery. The scores were 9 and 9. Attention was then turned to the placenta, which was delivered manually and intact. The uterus was exteriorized from the abdomen, inspected, and cleared of all amniotic membrane and debris with a dry laparotomy sponge. The hysterotomy was reapproximated in 2 layers. First 1 Vicryl suture was used in a running locked fashion and the second layer a 0 Biosyn suture was used in a running locked fashion. Excellent hemostasis was achieved at the end of the hysterotomy repair. The posterior cul-de-sac was suctioned. Bilateral tubes and ovaries were inspected and noted to be normal. The uterus was placed back into the abdomen. Bilateral gutters were inspected and cleared of all debris. The hysterotomy was again reinspected and noted to be hemostatic. The peritoneum was then reapproximated using chromic suture in a running fashion. The musculature was reapproximated in 2 interrupted sutures using the 0 Biosyn. The fascia was reapproximated using 1 Vicryl in a running fashion. The subcutaneous tissue was irrigated and reapproximated using 1 Vicryl in a running fashion. The skin was reapproximated in subcuticular fashion using 3-0 Vicryl suture and Steri-Strips were applied. The patient tolerated the procedure well and was recovering in stable condition in the floor after the procedure. JESSICA LEVI DO /[id number]
--- NOTE | 2017-05-10 14:35 | PATH ---
Surgical Pathology Report Patient Name: RANJANA RIVERA Med. Rec. 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 Specimen(s) Received PLACENTA Clinical History , 41.3 weeks Primary c/section-failure to progress Final Diagnosis PLACENTA, DELIVERY: FOCALLY DISRUPTED THIRD TRIMESTER PLACENTA WITH MILD TO MODERATE PREVILLOUS, PERIVILLOUS, AND PRECHORIONIC FIBRIN DEPOSITION, THREE VESSEL UMBILICAL CORD WITH FOCAL ACUTE FUNISITIS WITH FOCAL THROMBOSIS, AND PLACENTAL MEMBRANES WITH ACUTE CHORIOAMNIONITIS AND ACUTE INFLAMMATION OF CHORIONIC PLATE. Electronically Signed Rosendo Gore M.D. Gross Description The specimen is received fresh, labeled "placenta" and is a 547 gram, 22.0 x 15.0 x 3.0 cm placenta with attached membranes and umbilical cord. The attached membranes are puentes, thick, cloudy and insert marginally. The umbilical cord measures 38 cm in length and averages 1.1 cm in diameter. The cord inserts eccentrically, 3 cm to the nearest margin. No true knots or strictures are identified. Cut surface of the umbilical cord reveals 3 vessels. The surface is castellanos-blue with fibrin deposition and appropriate caliber vessels. The maternal surface is red-brown with focal defects. Sectioning reveals red-brown, spongy parenchyma. No focal lesions are identified. Senior Data Mining Analyst sections are submitted in three cassettes as follows: 1- membrane rolls and umbilical cord; 2-3- full thickness sections of placenta. 05/09/2017 [facility]05/09/2017
== END 2017-05-09 14:30 | disposition home or self-care (01) | DRG 765 ==
LOC: JLDR 19:20 → J3W 05-05 14:09
PROVIDERS: ADMIT Obstetrics & Gynecology; ATTEND Obstetrics & Gynecology
PROC: 3E0P7GC Introduction of Other Therapeutic Substance into Female Reproductive, Via Natural or Artificial Opening (ICD-10-PCS; 2017-05-02)
PROC: 10D00Z1 Extraction of Products of Conception, Low, Open Approach (ICD-10-PCS; principal; 2017-05-08)
DX: O62.0 Primary inadequate contractions (principal); O41.1230 Chorioamnionitis, third trimester, not applicable or unspecified; Z3A.41 41 weeks gestation of pregnancy; O48.0 Post-term pregnancy; O61.0 Failed medical induction of labor; Z22.330 Carrier of Group B streptococcus; O26.893 Other specified pregnancy related conditions, third trimester; N90.89 Other specified noninflammatory disorders of vulva and perineum; Z37.0 Single live birth
CPT/HCPCS: 36415; 80048; 80307; 85025; 85610; 85730; 86593; 86850; 86900; 86901; 88307-TC; 90715